=== PATIENT | male | born 1960 | race Caucasian/White ===

== ENCOUNTER 2021-12-14 10:05 | Day surgery (SDC) | payer SELFPAY ==
[~2021-12-14 10:05] MED LIST: Lactated Ringers 1,000 ML IV SCH; Lidocaine 1%/Sod Bicarbonate in NS 8.4% 1 ML Syringe IDERM PRN; Sodium Chloride 0.9% 10 ML Syringe FLUSH PRN; Sodium Chloride 0.9% 10 ML Syringe FLUSH SCH
[2021-12-14] MEDS ORDERED: fentaNYL 100 MCG/2 ML SDV ONE (10:58)
[2021-12-14] MEDS ORDERED: Lidocaine 1% 4 ML ONE (10:58)
[2021-12-14] MEDS ORDERED: Midazolam 1 MG/ML 2 ML SDV ONE (10:58)
[2021-12-14] MEDS ORDERED: Propofol 200 MG/20 ML SDV ONE ×2 (10:58→12:43)
[2021-12-14] MEDS ORDERED: Bupivacaine 0.5%/EPINEPHrine 1:200,000 50 ML MDV ONE (11:11)
[2021-12-14] MEDS ORDERED: fentaNYL 100 MCG/2 ML SDV IVPUSH PRN (13:27)
[2021-12-14 16:07] VITALS: BP 125/70; PULSE 58
== END 2021-12-14 14:45 | disposition home or self-care (01) ==
LOC: JD.SDS 10:05
PROVIDERS: ATTEND Surgery
DX: C43.59 Malignant melanoma of other part of trunk (principal); I10 Essential (primary) hypertension; E03.9 Hypothyroidism, unspecified; E78.00 Pure hypercholesterolemia, unspecified; G47.00 Insomnia, unspecified; E66.9 Obesity, unspecified; Z68.30 Body mass index [BMI] 30.0-30.9, adult; Z87.891 Personal history of nicotine dependence; Z86.73 Personal history of transient ischemic attack (TIA), and cerebral infarction without residual deficits; Z79.890 Hormone replacement therapy; Z79.899 Other long term (current) drug therapy
CPT/HCPCS: 11606; J2250; J2704; J3010; J3490; J7120; 00400

== ENCOUNTER 2024-05-30 08:03 | Day surgery (SDC) | payer SELFPAY ==
[~2024-05-30 08:03] MED LIST changes: -Lactated Ringers 1,000 ML IV SCH; -Lidocaine 1%/Sod Bicarbonate in NS 8.4% 1 ML Syringe IDERM PRN; +Propofol 200 MG/20 ML SDV ONE
[2024-05-30] MEDS ORDERED: Propofol 200 MG/20 ML SDV ONE (08:12)
[2024-05-30] MEDS: Lactated Ringers 1,000 ML IV SCH (08:20)
[2024-05-30] MEDS ORDERED: Ondansetron 4 MG/2 ML SDV IVPUSH PRN (09:05)
[2024-05-30] MEDS ORDERED: HYDROmorphone 0.5 MG/0.5 ML Syringe IVPUSH PRN (09:05)
[2024-05-30] MEDS ORDERED: fentaNYL 100 MCG/2 ML SDV IVPUSH PRN (09:05)
[2024-05-30 14:42] VITALS: BP 131/61; PULSE 50
== END 2024-05-30 10:30 | disposition home or self-care (01) ==
LOC: JD.SDS 08:03
PROVIDERS: ATTEND Surgery
DX: Z12.11 Encounter for screening for malignant neoplasm of colon (principal); K57.30 Diverticulosis of large intestine without perforation or abscess without bleeding; I25.10 Atherosclerotic heart disease of native coronary artery without angina pectoris; I10 Essential (primary) hypertension; E03.9 Hypothyroidism, unspecified; E11.9 Type 2 diabetes mellitus without complications; Z79.82 Long term (current) use of aspirin; Z79.899 Other long term (current) drug therapy; Z79.890 Hormone replacement therapy; Z79.84 Long term (current) use of oral hypoglycemic drugs; Z87.891 Personal history of nicotine dependence
CPT/HCPCS: 45378; J2704; J7120

== ENCOUNTER 2024-11-27 06:30 | Day surgery (SDC) | payer MEDICARE ==
[2024-11-26 19:26] LABS: HEMATOCRIT 41.4 % (42.0-52.0); HEMOGLOBIN 13.7 gm/dl (14.0-18.0); MEAN CORPUSCULAR HEMOGLOBIN 29.3 pg (28.0-32.0); MEAN CORPUSCULAR HGB CONC 33.1 g/dl (32.0-36.0); MEAN CORPUSCULAR VOLUME 88.7 fl (83.0-99.0); MEAN PLATELET VOLUME 10.2 fl (9.4-12.4); PLATELET COUNT,PLT 246 K/mm3 (150-400); RED BLOOD CELL COUNT 4.67 M/mm3 (4.52-5.90); WHITE BLOOD CELL COUNT,WBC 9.08 K/mm3 (3.9-11.3)
[2024-11-26 19:36] LABS: ALANINE AMINOTRANSFERASE,ALT 27 U/L (16-63); ALBUMIN 3.7 g/dl (3.4-5.0); ALKALINE PHOSPHATASE 71 U/L (46-116); ANION GAP 12.7 (5-15); ASPARTATE AMNIOTRANSFERASE,AST 17 U/L (15-37); BILIRUBIN TOTAL 0.4 mg/dL (0.2-1.0); BLOOD UREA NITROGEN,BUN 24 mg/dL (7-18); BUN/CREATININE RATIO 17.1 (14-18); CALCIUM 8.8 mg/dL (8.5-10.1); CARBON DIOXIDE,CO2 27 mEq/L (21-32); CHLORIDE,CL 106 mEq/L (98-107); CREATININE 1.4 mg/dL (0.7-1.3); ESTIMATED GFR 56 mL/min (>60); GLUCOSE RANDOM 137 mg/dL (70-99); IRON,FE 59 ug/dL (65-175); PERCENT FE SATURATION 19 % (20-55); POTASSIUM,K 3.7 mEq/L (3.5-5.1); PROTEIN TOTAL,TP 7.4 g/dl (6.4-8.2); SODIUM,NA 142 mEq/L (136-145); TRANSFERRIN 254 mg/dL (202-364); TSH 7.199 uIU/mL (0.358-3.74)
[2024-11-26 19:38] LABS: TOTAL IRON BINDING CAPACITY 318 ug/dL (100-400)
[2024-11-26 19:44] LABS: HEMOGLOBIN A1C 5.9 %
[~2024-11-27 06:30] MED LIST changes: -Propofol 200 MG/20 ML SDV ONE
[2024-11-27] MEDS ORDERED: propofoL 500 MG/50 ML 50 ML ONE ×2 (06:45→08:48)
[2024-11-27] MEDS ORDERED: dexmedeTOMIDine HCl 200 MCG/2 ML SDV ONE (06:54)
[2024-11-27] MEDS ORDERED: Ondansetron 4 MG/2 ML SDV ONE (06:54)
[2024-11-27] MEDS: Lactated Ringers 1,000 ML IV SCH (07:00)
[2024-11-27] MEDS: Acetaminophen 325 MG Tab PO ONE (07:18)
[2024-11-27] MEDS: Pregabalin 25 MG Cap PO ONE (07:19)
[2024-11-27] MEDS: oxyCODONE ER 10 MG TAB.ER PO ONE (07:20)
[2024-11-27 07:31] LABS: PROTHROMBIN TIME 9.8 SECONDS (9.7-12.0)
[2024-11-27 07:32] LABS: INR < 0.93; PTT,PARTIAL THROMBOPLSTIN TIME 27.1 SECONDS (21.7-31.4)
[2024-11-27] MEDS ORDERED: ceFAZolin 2 GM Vial ONE (08:19)
[2024-11-27] MEDS ORDERED: ePHEDrine 50 MG/ML SDV ONE (08:20)
[2024-11-27] MEDS ORDERED: Lactated Ringers 1,000 ML ONE (08:34)
[2024-11-27] MEDS ORDERED: Phenylephrine 1% 10 MG/ML SDV ONE (08:42)
[2024-11-27] MEDS ORDERED: Ondansetron 4 MG/2 ML SDV IVPUSH PRN (08:50)
[2024-11-27] MEDS ORDERED: HYDROmorphone 0.5 MG/0.5 ML Syringe IVPUSH PRN (08:50)
[2024-11-27] MEDS ORDERED: fentaNYL 100 MCG/2 ML SDV IVPUSH PRN (08:50)
[2024-11-27] MEDS ORDERED: Ropivacaine 0.5% 5 MG/ML 30 ML SDV ONE (08:53)
[2024-11-27] MEDS: Morphine 8 MG, EPINEPHrine 0.3 MG, Cefuroxime 750 MG, Ketorolac 30 MG, Sodium Chloride ... PRN (09:26)
[2024-11-27] MEDS: VANCOmycin 1 GM SDV ONE (09:31)
[2024-11-27] MEDS: Tranexamic Acid 1,000 MG/10 ML Vial ONE (09:31)
[2024-11-27] MEDS: oxyCODONE 5 MG Tab PO PRN (10:39)
[2024-11-27] MEDS ORDERED: Propofol 200 MG/20 ML SDV ONE (10:39)
[2024-11-27] MEDS ORDERED: Sodium Chloride 0.9% 100 ML ONE (11:08)
[2024-11-27 13:40] VITALS: BP 146/62; PULSE 59
== END 2024-11-27 14:10 | disposition home or self-care (01) ==
LOC: JD.SDS 06:30
PROVIDERS: ATTEND Orthopaedic Surgery
DX: M17.11 Unilateral primary osteoarthritis, right knee (principal); I25.10 Atherosclerotic heart disease of native coronary artery without angina pectoris; I13.0 Hypertensive heart and chronic kidney disease with heart failure and stage 1 through stage 4 chronic kidney disease, or unspecified chronic kidney disease; G89.18 Other acute postprocedural pain; E11.22 Type 2 diabetes mellitus with diabetic chronic kidney disease; N18.30 Chronic kidney disease, stage 3 unspecified; I50.9 Heart failure, unspecified; D64.9 Anemia, unspecified; E78.5 Hyperlipidemia, unspecified; E03.9 Hypothyroidism, unspecified; Z79.01 Long term (current) use of anticoagulants; Z79.82 Long term (current) use of aspirin; Z79.890 Hormone replacement therapy; Z79.899 Other long term (current) drug therapy
CPT/HCPCS: 01402; 36415; 64447; 73560-26-RT; 73560-RT; 80053; 83036; 83540; 84443; 84466; 85027; 85610; 85730; 97116-GP; 97161-GP; 97530-GP; A9270-GY; C1713; C1776; J0171; J0690; J0697; J1885; J2272; J2371; J2405; J2704; J2795; J3490; J7120